=== PATIENT | male | born 2000 | race Two or more races ===

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

== ENCOUNTER 2022-10-11 17:41 | Emergency (ER) | payer SELFPAY ==
[2022-10-11 17:48] VITALS: BP 140/80
[2022-10-11 18:02] LABS: RAPID STREP SCREEN Negative (Negative)
[2022-10-11] MEDS ORDERED: DEXAMETHASONE 10 MG/ML VIAL PO STA (18:18)
[2022-10-11] MEDS ORDERED: IBUPROFEN 600 MG TABLET PO STA (18:18)
[2022-10-11] MEDS ORDERED: CHERRY SYRUP 10 ML UDC PO ONE (18:18)
--- NOTE | 2022-10-11 18:22 | ED Physician Documentation ---
History of Present Illness - Stated complaint Stated Complaint: SORE THROAT - Chief complaint Chief Complaint: Heent - Additonal information Additional information: 22-year-old male presents emergency department for evaluation of a sore throat. He reports that for 2 days he has had pain anytime he swallows even with drinking water. Has had no fevers. No tonsillar exudate. He feels like his throat collapses when he swallows. He is tolerating his oral secretions. Normal phonation. He has a history of strep throat but this feels different. No fevers, no cough. No abdominal pain. No tender anterior cervical lymphadenopathy History is obtained from patient. Reliable historian. Review of Systems Constitutional: denies: Fever Nose: denies: Rhinorrhea / runny nose, Congestion Throat: reports: Sore throat Cardiac: reports: Reviewed and negative Respiratory: reports: Reviewed and negative GI: reports: Reviewed and negative : reports: Reviewed and negative PD PAST MEDICAL HISTORY - Past Surgical History Past Surgical History: No - Allergies Allergies/Adverse Reactions: Allergies Allergy/AdvReac Type Severity Reaction Status Date / Time No Known Drug Allergies Allergy Verified 10/11/22 17:45 - Social History Does the pt smoke?: No Smoking Status: Never smoker Does the pt drink ETOH?: No Does the pt have substance abuse?: No PD ED PE NORMAL - General General: Alert and oriented X 3, No acute distress, Well developed/nourished - HEENT HEENT: Atraumatic, Ears normal, Moist mucous membranes. No: Pharynx benign (Mild posterior pharynx erythema without tonsillar exudate or swelling. Uvula is midline. No soft palate asymmetry or swelling. Normal phonation.) - Neck Neck: Supple, no meningeal sign. No: No adenopathy (Mild tender anterior cervical lymphadenopathy) - Cardiac Cardiac: RRR, No murmur - Respiratory Respiratory: Clear bilaterally Results - Vitals Vitals: Vital Signs - 24 hr 10/11/22 17:45 Temperature 36.5 C Heart Rate 66 Respiratory 16 Rate Blood Pressure 140/80 H O2 Saturation 100 Oxygen O2 Source Room air - Labs Labs: Laboratory Tests 10/11/22 17:45 Group A Strep Rapid Negative PD Medical Decision Making - ED course Complexity details: reviewed results, re-evaluated patient, considered d ifferential, d/w patient ED course: 20-year-old male presents emergency department for evaluation of a sore throat for 2 days. No fevers. ENT exam reveals mild posterior oropharynx erythema and some mild tender anterior cervical lymphadenopathy but no exudate. Normal phonation. Unremarkable cardiopulmonary auscultation. The rapid strep test is negative. Clinically nothing to suggest RPA or ED CASE MANAGER. Given the otherwise benign appearance of this patient will defer antibiotics unless culture is positive. He is given a dose of Decadron orally today here in the emergency department. I did discuss routine conservative care measures for suspected viral pharyngitis including Tylenol Motrin warm salt water rinses. Usual emergent return precautions were discussed Departure - Departure Disposition: Home, Self Care Clinical Impression: Acute viral pharyngitis Condition: Stable Record reviewed to determine appropriate education?: Yes Instructions: ED Pharyngitis Viral Report Pending Comments: Michael as we discussed at the bedside I suspect they have a virus causing your sore throat. We did give you a dose of Decadron today in the ER which should help with the symptoms markedly over the next 3 to 4 days. Recommend you take 600 Motrin or 500 Tylenol for discomfort. Gargling with warm salt water can also be helpful. Your rapid strep today was negative. We will defer antibiotics unless the culture is positive. You should return to the ER if you develop any fevers, cannot speak normally, cannot open your mouth, cannot turn your neck or tolerate your oral secretions.
== END 2022-10-11 18:27 | disposition home or self-care (01) ==
LOC: ED 17:41
DX: J02.8 Acute pharyngitis due to other specified organisms (principal)
CPT/HCPCS: 87070; 87430; 99283; A9270

== ENCOUNTER 2023-10-22 12:49 | Emergency (ER) | payer BC ==
--- NOTE | 2023-10-22 13:44 | XRAY Report ---
PROCEDURE: Wrist 3+V LT INDICATIONS: L wrist injury TECHNIQUE: 3 views of the wrist were acquired. COMPARISON: None. FINDINGS: Bones: No fractures or dislocations. No suspicious bony lesions. Soft tissues: No suspicious soft tissue calcifications or masses. IMPRESSION: No acute fracture. No osseous lesion. If symptoms and/or clinical suspicion for pathology continue, f urther assessment with repeat plain films, or advanced imaging (e.g., CT, MRI, or bone scan) is recom mended for further assessment. Reviewed by: Rolanda Lala MD on 10/22/2023 1:43 PM PST Approved by: Rolanda Lala MD on 10/22/2023 1:43 PM [facility] Station ID: [id number]
--- NOTE | 2023-10-22 14:50 | ED Physician Documentation ---
PD HPI UPPER EXT INJURY - Stated complaint Stated Complaint: LT WRIST PX - Chief complaint Chief Complaint: Ext Problem - History obtained from History obtained from: Patient - Additonal information Additional information: Patient is a 23-year-old male with no significant past medical history presenting for evaluation of left wrist pain for the past 2 days after throwing a kiwi. 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 Denies other falls or injuries. No numbness or tingling. Has been using a wrist brace along with taking 1 dose of ibuprofen a day. He has also been using ice. No prior injuries to the extremity. Review of Systems Musculoskeletal: reports: Extremity pain Neurologic: denies: Head injury PD PAST MEDICAL HISTORY - Past Medical History Past Medical History: No Cardiovascular: None Respiratory: None Neuro: None Endocrine/Autoimmune: None GI: None : None HEENT: None Psych: None Musculoskeletal: None Derm: None - Past Surgical History Past Surgical History: No - Allergies Allergies/Adverse Reactions: Allergies Allergy/AdvReac Type Severity Reaction Status Date / Time No Known Drug Allergies Allergy Verified 10/22/23 12:53 - Social History Does the pt smoke?: No Smoking Status: Never smoker Does the pt drink ETOH?: No Does the pt have substance abuse?: No - Immunizations Immunizations are current?: Yes - POLST Patient has POLST: No PD ED PE NORMAL - General General: Alert and oriented X 3, No acute distress, Well developed/nourished - HEENT HEENT: Atraumatic - Cardiac Cardiac: Strong equal pulses - Respiratory Respiratory: No respiratory distress - Derm Derm: Warm and dry - Extremities Extremities: No deformity, No edema, Other (Reports pain With wrist flexion, no pain with extension, no bony tenderness, swelling or erythema, no snuffbox tenderness, normal range of motion at left elbow and digits of left hand) - Neuro Neuro: Alert and oriented X 3, No motor deficit, No sensory deficit, Normal speech Results - Vitals Vitals: Vital Signs - 24 hr 10/22/23 10/22/23 12:53 14:52 Temperature 36.8 C 36.6 C Heart Rate 72 70 Respiratory 16 16 Rate Blood Pressure 118/72 O2 Saturation 99 100 Oxygen O2 Source Room air PD Medical Decision Making - ED course Complexity details: reviewed results, d/w patient ED course: Patient is a 23-year-old male with left wrist pain after throwing something over the weekend. No deformities noted on exam. Neurovascularly intact. Has overall good range of motion at the left wrist. X-ray was obtained which I rev iewed I see no fracture or dislocation. No snuffbox tenderness. Will instruct patient to continue with supportive care including wrist splint which she has with him, ice, anti-inflammatories and avoiding any motions that may exacerbate his injury. Patient understands importance of close follow-up. Departure - Departure Disposition: 01 Home, Self Care Clinical Impression: Sprain and strain of left wrist Condition: Stable Instructions: ED Sprain Wrist Comments: Your x-ray does not show a broken or dislocated bone. Please continue to use the brace as needed for comfort. Also continue with anti-inflammatory such as acetaminophen or ibuprofen, ice and elevation. If your symptoms are not improving by this weekend that I would make an appointment to be seen by your primary care doctor. Forms: PCP List, Activity restrictions Discharge Date/Time: 10/22/23 14:52
[2023-10-22 15:01] VITALS: BP 118/72; O2SAT 100
== END 2023-10-22 14:52 | disposition home or self-care (01) ==
LOC: ED 12:49
DX: S63.502A Unspecified sprain of left wrist, initial encounter (principal); X58.XXXA Exposure to other specified factors, initial encounter
CPT/HCPCS: 99283

== ENCOUNTER 2024-05-04 07:45 | Emergency (ER) | payer BC ==
--- NOTE | 2024-05-04 08:05 | ED Physician Documentation ---
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 He states it started after he was playing with his dog and skidded across the carpet on his knee. Nothing see ms to make it better or worse. No redness. States it is not really painful. The swelling just has not gone away, so decided to come in for evaluation. Review of Systems Constitutional: denies: Fever PD PAST MEDICAL HISTORY - Past Medical History Cardiovascular: None Respiratory: None Neuro: None Endocrine/Autoimmune: None GI: None : None HEENT: None Psych: None Musculoskeletal: None Derm: None - Past Surgical History Past Surgical History: No - Present Medications Home Medications: Ambulatory Orders Medication Instructions Recorded Confirmed Meloxicam 15 mg PO DAILY PRN #10 tab 05/04/24 - Allergies Allergies/Adverse Reactions: Allergies Allergy/AdvReac Type Severity Reaction Status Date / Time No Known Drug Allergies Allergy Verified 05/04/24 07:59 - Social History Does the pt smoke?: No Smoking Status: Never smoker Does the pt drink ETOH?: No Does the pt have substance abuse?: No - Immunizations Immunizations are current?: Yes - POLST Patient has POLST: No PD ED PE NORMAL - Vitals Vital signs reviewed: Yes - General General: Alert and oriented X 3, No acute distress - HEENT HEENT: Moist mucous membranes - Derm Derm: Warm and dry - Extremities Extremities: Other - Neuro Neuro: Alert and oriented X 3 - Free text exam Free text exam: L knee -Infrapatellar swelling, approximately 2 x 2 cm, soft. No induration. No erythema. No joint effusion. No bony tenderness. ACL, MCL, PCL, LCL are intact. Full range of motion without pain. Neurovascular intact Results - Vitals Vitals: Vital Signs - 24 hr 05/04/24 07:54 Temperature 36.6 C Heart Rate 54 L Respiratory 15 Rate Blood Pressure 143/69 H O2 Saturation 100 Oxygen O2 Source Room air PD Medical Decision Making - ED course Complexity details: considered differential, d/w patient ED course: 23-year-old male with a left knee infrapatellar bursitis. No induration. No erythema. No joint effusion. Full range of the knee without pain. No bony tenderness. Ligaments are intact. No indication for x-ray. Placed in an autumn wrap for compression. Recommend a neoprene sleeve at home. We will place him on anti-inflammatory medications as well. No indication for drainage at this time. Patient counseled regarding signs and symptoms for which I believe and urgent re-evaluation would be necessary. Patient with good understanding of and agreement to plan and is comfortable going home at this time This document was made in part using voice recognition software. While efforts are made to proofread this document, sound alike and grammatical errors may occur. Departure - Departure Disposition: 01 Home, Self Care Clinical Impression: Bursitis Qualifiers: Bursitis location: knee Knee bursitis location: infrapatellar bursitis Laterality: left Qualified Code(s): M70.52 - Other bursitis of knee, left knee Condition: Good Instructions: ED Bursitis Follow-Up: your,doctor as needed [Other] Prescriptions: Meloxicam 15 mg PO DAILY PRN #10 tab PRN Reason: knee pain Comments: As we discussed you have a traumatic bursitis, you can apply ice to this area. Compression will be important to help it resolve. Please limit bending as well. Your prescription was sent to [facility] in [place]. This is a long-acting anti-inflammatory medication, do not take it with a Aleve, Motrin, etc. Forms: PCP List, Activity restrictions
[2024-05-04 08:26] VITALS: BP 142/71; O2SAT 99
== END 2024-05-04 08:25 | disposition home or self-care (01) ==
LOC: ED 07:45
DX: M70.52 Other bursitis of knee, left knee (principal); Y93.89 Activity, other specified
CPT/HCPCS: 99282; 99283